=== PATIENT | female | born 1945 | race Caucasian/White ===

== ENCOUNTER → 2016-06-01 | Outpatient (CLI) | payer MEDICARE ==
[~2016-06-01] MED LIST: ALLEGRA PO; ALLEGRA180 MG PO; ASPIRINEC PO; BACTRIM DS TABL1 TAB PO; BENAZEPRIL HCL10 MG PO; BENAZEPRIL HCL5 M2 PO; BENAZEPRIL HCL5 MG; BENAZEPRIL PO; CELEXA; CELEXA PO; CELEXA10 MG PO; LEVOTHYROXINE75 MCG PO; MACROBID100 MG PO; MUCINEX DM1 TAB.SR . PO; NEURONTIN; NORCO 5MG/325MG PO; OMEPRAZOLE20 M2 PO; OMEPRAZOLE40 MG; OXCARBAZEPINE150 M2 PO; PHENERGAN PO; POSTURE600 MG PO; PRILOSEC PO; PRILOSEC20 M1 PO; SYNTHROID PO; SYNTHROID0.2 MG PO; THYROID; TRILEPTAL PO; TRILEPTAL300 MG PO; VICODIN 5/500 T1 TAB PO; ZITHROMAX PO; ZOFRAN ODT4 MG PO; ZYRTEC10 M2 PO; ZYRTEC10 M3; [UNRECOGNIZED DRUG - REMARK]
--- NOTE | ~2016-06-01 | MY11 ---
[facility] A Service of [facility] RADIOLOGY TEXT RESULTS PATIENT: NILSON CAMILO LOCATION: [facility] : 47 UNIT #: [id number] AGE: [address]: Suly Watts MD SEX: F ORDER DR: [id number] [address] [address] [id number] MR#: [id number] Acc #: [id number] NAME: NILSON CAMILO : 1945 SEX: F STUDY DATE/TIME: 06/01/2016 11:46 UNIT: [facility] ROOM: STUDY DESCRIPTION: MY Mammogram Screening Dig Hector Attending Physician: Suly Watts M.D. Referring Physician: Suly Watts M.D. Ordering Physician: Suly Watts M.D. Primary Care Physician: Suly Watts M.D. MEDICAL IMAGING REPORT This report is preliminary unless electronic signature is present. EXAM Digital screening mammogram 06/01/2016 [facility] HISTORY 71-year-old woman. Positive family history, mother postmenopausal. Annual screening. FINDINGS Comparison mammograms date to 04/09/2006 with most recent screening comparison 05/16/2015. FINDINGS Digital imaging of each breast was completed utilizing a two-view examination of each breast in craniocaudal and mediolateral-oblique projections. Review and interpretation of digital mammograms include a second review in conjunction with FDA-approved CAD device. There is a normal parenchymal presentation bilaterally consistent with the patient's age. There are no breast masses imaged and no parenchymal asymmetry is visualized. There are no suspicious microcalcifications and I see no focal architectural disturbance. IMPRESSION Negative screening digital mammogram. One-year followup recommended. Patients over the age of 40 are entered into a reminder system with target due date for the next mammogram. A result letter will also be sent to the patient. BIRADS: 1 Negative ADDENDUM Breast parenchyma is fatty replaced. [facility] A Service of [facility] RADIOLOGY TEXT RESULTS PATIENT: NILSON CAMILO LOCATION: [facility] : 47 UNIT #: [id number] AGE: [address]: Suly Watts MD SEX: F ORDER DR: Dictated by... Aleksandar Nicole M.D. THIS IS AN ELECTRONICALLY VERIFIED REPORT Aleksandar Nicole M.D. at 06/01/2016 1:58 PM Tesha TD: 06/01/2016 13:09 JOB #: [id number] MEDICAL IMAGING REPORT Page 1 of 1
== END | disposition home or self-care (01) ==
LOC: SMAM 07:57
DX: Z12.31 Encounter for screening mammogram for malignant neoplasm of breast (principal); Z80.3 Family history of malignant neoplasm of breast
CPT/HCPCS: G0202

== ENCOUNTER → 2016-06-29 | Outpatient (CLI) | payer MEDICARE ==
--- NOTE | ~2016-06-29 | CT2 ---
[facility] A Service of [facility] RADIOLOGY TEXT RESULTS PATIENT: NILSON CAMILO LOCATION: [facility] : 47 UNIT #: [id number] AGE: [address]: Suly Watts MD SEX: F ORDER DR: [id number] [address] [address] [id number] O MR#: [id number] Acc #: [id number] NAME: NILSON CAMILO : 1945 SEX: F STUDY DATE/TIME: 06/29/2016 16:09 UNIT: [facility] ROOM: STUDY DESCRIPTION: CT Abd and Pelv W Cont Attending Physician: Suly Watts M.D. Referring Physician: Sluy Watts M.D. Ordering Physician: Physician Non-Staff Primary Care Physician: Suly Watts M.D. MEDICAL IMAGING REPORT This report is preliminary unless electronic signature is present. EXAM CT of the abdomen and pelvis with IV contrast media 06/29/2016 HISTORY Abdominal cramping and pain. Diverticulitis. History of bladder infection, left lower quadrant pain for 3 weeks. TECHNIQUE Axial imaging of the abdomen and pelvis was obtained with IV contrast media. This CT exam was performed with one or more of the following radiation dose reduction techniques: automatic exposure control, adjustment of mA and/or kV according to patient size, and iterative reconstruction. FINDINGS Scans through the bases show basilar fibrosis. There is a moderate-sized hiatal hernia. The liver and spleen appear normal. The gallbladder is absent. The pancreas is normal. There is a large duodenal diverticulum containing debris. Right and left kidney are normal. No dilated or thickened loops of bowel are present. The appendix appears unremarkable. It is upper limits of normal for size. Scans through the pelvis appear normal. The patient does have diverticulosis but no compelling evidence of diverticulitis. CONCLUSION 1. Postop changes of prior cholecystectomy. 2. Hiatal hernia. 3. Diverticulosis without diverticulitis. Remainder of the scan appears normal. Dictated by... [facility] A Service of [facility] RADIOLOGY TEXT RESULTS PATIENT: NILSON CAMILO LOCATION: [facility] : 47 UNIT #: [id number] AGE: [address]: Suly Watts MD SEX: F ORDER DR: Chilo Yun M.D. THIS IS AN ELECTRONICALLY VERIFIED REPORT Chilo Yun M.D. at 07/02/2016 4:52 PM KYARA/marco antonio TD: 06/29/2016 18:34 JOB #: [id number] MEDICAL IMAGING REPORT Page 1 of 1
[2016-06-29 15:25] LABS: POC - GFR >60.0 mL/min (>60)
== END | disposition home or self-care (01) ==
LOC: SCT 14:58
PROVIDERS: Family Medicine
DX: R10.9 Unspecified abdominal pain (principal); K44.9 Diaphragmatic hernia without obstruction or gangrene; K57.90 Diverticulosis of intestine, part unspecified, without perforation or abscess without bleeding; Z90.49 Acquired absence of other specified parts of digestive tract
CPT/HCPCS: 74177; 82565; Q9967

== ENCOUNTER → 2016-08-24 | Outpatient (CLI) | payer MEDICARE ==
[2016-08-24 13:32] LABS: THYROID STIMULATING HORMONE 1.03 uIU/ml (0.34-5.60)
[2016-08-24 14:44] LABS: FREE T3 2.8 pg/mL (2.5-3.9)
[2016-08-24 14:46] LABS: FREE THYROXIN (T4) 0.8 ng/dL (0.58-1.64)
== END | disposition home or self-care (01) ==
LOC: SLAB 12:07
PROVIDERS: Otolaryngology
DX: E04.1 Nontoxic single thyroid nodule (principal)
CPT/HCPCS: 36415; 84439; 84443; 84481

== ENCOUNTER → 2016-10-16 | Outpatient (CLI) | payer MEDICARE ==
--- NOTE | ~2016-10-16 | MR113 ---
[facility] A Service of [facility] RADIOLOGY TEXT RESULTS PATIENT: NILSON CAMILO LOCATION: [facility] : 47 UNIT #: [id number] AGE: [address]: Suly Watts MD SEX: F ORDER DR: [id number] [address] [address] [id number] O MR#: [id number] Acc #: [id number] NAME: NILSON CAMILO : 1945 SEX: F STUDY DATE/TIME: 10/16/2016 13:53 UNIT: [facility] ROOM: STUDY DESCRIPTION: MR Lumbar Wo Contrast Attending Physician: Suly Watts M.D. Referring Physician: Suly Watts M.D. Ordering Physician: Suly Watts M.D. Primary Care Physician: Suly Watts M.D. MRI CENTER REPORT This report is preliminary unless electronic signature is present. EXAM MRI of the lumbar spine without contrast HISTORY 71-year-old female fell off porch 1 month ago, complains of low back pain ever since fall. Not improving. COMPARISON Lumbar spine films 10/10/2016 TECHNIQUE Multiplanar multiecho imaging of the lumbar spine utilizing a high field magnet dedicated protocol. FINDINGS Normal spinal alignment. No focal marrow edema. No evidence of an occult fracture. T1 hyperintense lesion is seen within the L2 vertebral body compatible with hemangioma. Normal termination of the conus. At L1-2 there is mild disc desiccation and mild facet hypertrophic change. No spinal or foraminal stenosis. At L2-3, degenerative disc changes with circumferential disc bulge, mild facet hypertrophic change, mild foraminal narrowing left greater than right, no central canal stenosis. At L3-L4, there is degenerative disc changes with a circumferential disc bulge, which in combination with facet hypertrophic changes contributes to mild central canal stenosis and mild bilateral foraminal stenosis. At L4-5, there is disc desiccation and a circumferential disc bulge with a slightly more prominent left foraminal component. In combination with facet hypertrophic changes, this contributes to moderate left L4-5 STS. [facility] A Service of [facility] & [facility] RADIOLOGY TEXT RESULTS PATIENT: NILSON CAMILO LOCATION: [facility] : 47 UNIT #: [id number] AGE: [address]: Suly Watts MD SEX: F ORDER DR: foraminal stenosis and mild to moderate right L4-5 foraminal stenosis. A small focus of T2 hyperintensity seen along the posterior disc margin could represent a small annular tear within the left L4-5 foramen. At L5-S1, degenerative disc changes with a circumferential disc bulge. No significant spinal stenosis. Mild bilateral L5-S1 foraminal stenosis. The visualized SI joints and paravertebral soft tissues unremarkable. IMPRESSION 1. No acute lumbar spine pathology identified. In particular, no findings to suggest bone contusion or occult fracture. 2. Multilevel degenerative disc disease and facet arthropathy as detailed above. Izfm-bi-awpkmoal stenosis noted at L3-4 and mild to moderate foraminal stenosis noted on the left L4-5 and bilaterally at L5-S1. At 4-5 on the left, there is a small suspected annular tear within the foramen, it could be a source of back pain. Please see above for level by level details. Dictated by... Ashley Key M.D. THIS IS AN ELECTRONICALLY VERIFIED REPORT Ashley Key M.D. at 10/19/2016 4:50 PM NICOLASA/kurt TD: 10/17/2016 18:05 JOB #: [id number] MRI CENTER REPORT Page 1 of 1
--- NOTE | ~2016-10-16 | MR83 ---
[facility] A Service of [facility] RADIOLOGY TEXT RESULTS PATIENT: NILSON CAMILO LOCATION: [facility] : 47 UNIT #: [id number] AGE: [address]: Suly Watts MD SEX: F ORDER DR: [id number] [address] [address] [id number] O MR#: [id number] Acc #: [id number] NAME: NILSON CAMILO : 1945 SEX: F STUDY DATE/TIME: 10/16/2016 14:24 UNIT: [facility] ROOM: STUDY DESCRIPTION: MR Hip Wo Contrast Lt Attending Physician: Suly Watts M.D. Referring Physician: Suly Watts M.D. Ordering Physician: Suly Watts M.D. Primary Care Physician: Suly Watts M.D. MRI CENTER REPORT This report is preliminary unless electronic signature is present. EXAM MRI of the left hip and pelvis. HISTORY 71-year-old female fell off porch 1 month ago. Complains of left hip pain, buttock pain, increasing low back pain. COMPARISON Left hip films 10/10/2016. FINDINGS Multiplanar, multiecho imaging performed of the left hip and pelvis utilizing a high field magnet dedicated protocol. No evidence of occult fracture or bone contusion. Detailed imaging of the hips demonstrates a physiologic amount joint fluid. Articular cartilage appears maintained. No evidence of a labral tear or paralabral cyst. Pelvic and proximal thigh musculature appears normal. Mild focal tendinopathy involving the distal insertion of the gluteus medius tendon on the left hip. No high-grade tendinopathy or tear. Internal pelvic structures unremarkable. Uterus surgically absent. Minimal facet arthropathy lower lumbar spine. There are scattered sigmoid diverticula. IMPRESSION 1. Mild left gluteus medius tendinopathy without tear. No adjacent bursitis. 2. No evidence of occult fracture or bone contusion. 3. Mild facet arthropathy lower lumbar spine. 1. Dictated by.Lavern Key M.D. THIS IS AN ELECTRONICALLY VERIFIED REPORT [facility] A Service of [facility] & [facility] RADIOLOGY TEXT RESULTS PATIENT: NILSON CAMILO LOCATION: [facility] : 47 UNIT #: [id number] AGE: [address]: Suly Watts MD SEX: F ORDER DR: Ashley Key M.D. at 10/19/2016 4:50 PM Gely TD: 10/17/2016 12:10 JOB #: [id number] MRI CENTER REPORT Page 1 of 1
== END | disposition home or self-care (01) ==
LOC: SMRI 13:16
DX: M54.5 Low back pain (principal); M25.552 Pain in left hip; M76.9 Unspecified enthesopathy, lower limb, excluding foot; M46.96 Unspecified inflammatory spondylopathy, lumbar region; M51.36 Other intervertebral disc degeneration, lumbar region; M48.06 Spinal stenosis, lumbar region; M99.83 Other biomechanical lesions of lumbar region; M47.896 Other spondylosis, lumbar region; M51.86 Other intervertebral disc disorders, lumbar region
CPT/HCPCS: 72148; 73721